=== PATIENT | female | born 1995 | race African-American/Black ===

== ENCOUNTER 2023-02-28 15:42 | Emergency (ER) | payer OTHER ==
[~2023-02-28] VITALS: Ht 172.7 cm; Wt 91.0 kg
[2023-02-28] MEDS ORDERED: ALBUTEROL SULFATE 2.5 MG/0.5 ML NEB SOLUTION NEB ONE (16:30)
[2023-02-28] MEDS ORDERED: IPRATROPIUM BROMIDE 0.5 MG/2.5 ML NEB SOLUTION NEB ONE (16:30)
[2023-02-28 16:44] LABS: COVID AG,FIA SOURCE NASAL SWAB
[2023-02-28 17:54] VITALS: BP 115/64
[2023-02-28 17:57] LABS: INFLUENZA TYPE A NEGATIVE FOR TYPE A (NEGATIVE); INFLUENZA TYPE B NEGATIVE FOR TYPE B (NEGATIVE)
[2023-02-28] MEDS ORDERED: AZIT250T9 PO (18:07)
[2023-02-28] MEDS ORDERED: ALBU90AE IH (18:08)
== END 2023-02-28 18:11 | disposition home or self-care (01) ==
LOC: EMS 15:47
DX: J06.9 Acute upper respiratory infection, unspecified (principal); Z20.822 Contact with and (suspected) exposure to COVID-19
CPT/HCPCS: 71045; 87804; 94640; 99284; J7613